=== PATIENT | female | born 1985 | race Asian ===

== ENCOUNTER 2019-08-30 10:25 | Emergency (ER) | payer BC, OTHER ==
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
== END 2019-08-30 11:05 | disposition home or self-care (01) ==
LOC: KA.ED 10:25
DX: T26.11XA Burn of cornea and conjunctival sac, right eye, initial encounter (principal); X12.XXXA Contact with other hot fluids, initial encounter
CPT/HCPCS: 99283